=== PATIENT | female | born 1960 | race African-American/Black ===

== ENCOUNTER → 2018-12-11 | Outpatient (CLI) | payer OTHER ==
--- NOTE | 2018-12-11 17:21 | KCIC ---
BILATERAL SCREENING MAMMOGRAM History: Routine screening. Comparison: None available. Technique: Routine bilateral digital mammogram views were obtained. Findings: Breast Tissue Density C : The breasts are heterogeneously dense, which may obscure small masses. There is an asymmetry in the inner right breast at posterior depth. No definite correlate on the MLO view. There are no dominant masses, suspicious microcalcifications, or architectural distortion. IMPRESSION: There is asymmetry in the inner right breast at posterior depth. Recommend further evaluation with right true lateral, rolled medial and lateral CC, and spot compression CC digital views. If finding persists ultrasound is recommended. BI-RADS Category 0: Incomplete: Need additional imaging evaluation. The images were reviewed with computer aided detection. Patient information is entered into the reminder system with a target due date for the next screening mammogram. Mammography is the most sensitive method for finding small breast cancers, but it does not detect them all and is not a substitute for careful clinical examination. A negative mammogram does not negate a clinically suspicious finding and should not result in delay in biopsying a clinically suspicious abnormality. "Our facility is accredited by the [employer] Mammography [employer]." Electronically signed by: Ricki Wilburn MD (12/11/2018 5:18 PM) [id number]
== END | disposition home or self-care (01) ==
LOC: KCIC MAMMO 13:10
PROVIDERS: ATTEND Internal Medicine
DX: Z12.31 Encounter for screening mammogram for malignant neoplasm of breast (principal)
CPT/HCPCS: 77067

== ENCOUNTER → 2018-12-24 | Outpatient (CLI) | payer OTHER ==
--- NOTE | 2018-12-24 14:53 | KCIC ---
Right digital diagnostic mammogram and tomosynthesis and right breast ultrasound Reason for examination: Follow-up of right inner breast posterior depth asymmetry Comparison is made to previous study dated mammogram December 11, 2018 and November 05, 2011 Right CC and MLO digital spot compression views , CC rolled views and ML view obtained with mammography and tomosynthesis. Interpretation was made with the benefit of CAD. Mammogram: The skin and nipples show no abnormalities. No abnormal axillary lymph nodes are seen. The breast parenchyma is heterogeneously dense. (Breast density: Category C.) no suspicious calcifications. The linear asymmetry of the right upper inner breast posterior depth on tomosynthesis images demonstrates overlapping linear glandular tissue planes with no discrete mass or distortion, anterior of which is an oval subcentimeter nodular density at the 2:00 position assessed further sonographically. The differential mammographic appearance on the current exam compared to the prior study from 7 years ago is likely due to interval involutional changes of the breast tissue with decreasing density and nodularity over time. ULTRASOUND: Right breast 2:00 position 3 cm from the nipple demonstrates a 3 mm hypoechoic cystic lesion. Separately at the 3:00 position 4 cm the nipple is a 5 mm cluster of cysts or septated cystic lesion. These lesions likely calf for the nodularity on the mammogram. No sonographic correlate for the linear asymmetry of the upper inner breast associated with overlapping glandular tissue on the mammographic tomosynthesis images. Imaging features are probably benign. Impression: No suspicious right breast mammographic or sonographic abnormality. Right upper inner breast subcentimeter fibrocystic lesions are evident sonographically, and accounts for nodularity on the mammogram. Linear tissue asymmetry of the right upper inner breast on the mammogram is confirmed as overlapping glandular tissue on tomosynthesis imaging and has no sonographic correlate. The combined mammographic and sonographic imaging features are probably benign. Attention on follow-up right mammogram and right breast ultrasound in 6 months is advised. ?Your patient's mammogram demonstrates that she has dense breast tissue (breast density category C or D), which could hide abnormalities, and if she has other risk factors for breast cancer that have been identified, she might benefit from supplemental screening tests that may be suggested by you as her ordering physician. Dense breast tissue, in and of itself, is a relatively common condition. Therefore, this information is not provided to cause undue concern, but rather to raise your awareness and to promote discussion with your patient regarding the presence of other risk factors, in addition to dense breast tissue. Your patient's mammography results will be sent to her. BI-RAD Category 3: Probably benign. "Our facility is accredited by the [employer] Mammography [employer]." This patient's information has been entered into a reminder system for the patient to be notified with the results of her examination and a target date for the next mammogram. Electronically signed by: Chuck Mcnair MD (12/24/2018 2:50 PM) [id number]
== END | disposition home or self-care (01) ==
LOC: KCIC MAMMO 12:48
PROVIDERS: ATTEND Internal Medicine
DX: N64.89 Other specified disorders of breast (principal)
CPT/HCPCS: 76641; 77065